=== PATIENT | female | born 1975 | race Caucasian/White ===

== ENCOUNTER → 2017-01-18 | Outpatient (CLI) | payer BC | LOC: BHSO 10:58 | DX: F41.1 Generalized anxiety disorder (principal) ==

== ENCOUNTER → 2017-07-06 | Outpatient (CLI) | payer BC | LOC: BHSO 13:05 | DX: F33.1 Major depressive disorder, recurrent, moderate (principal) ==

== ENCOUNTER → 2017-11-17 | Outpatient (CLI) | payer BC | LOC: BHSO 10:44 | DX: F33.1 Major depressive disorder, recurrent, moderate (principal) | CPT/HCPCS: G0463 ==

== ENCOUNTER → 2018-03-16 | Outpatient (CLI) | payer BC | LOC: BHSO 13:53 | DX: F33.41 Major depressive disorder, recurrent, in partial remission (principal) | CPT/HCPCS: G0463 ==

== ENCOUNTER → 2018-11-16 | Outpatient (CLI) | payer BC | LOC: BHSO 09:35 | DX: F33.41 Major depressive disorder, recurrent, in partial remission (principal) | CPT/HCPCS: G0463 ==

== ENCOUNTER → 2019-02-08 | Outpatient (CLI) | payer BC | LOC: BHSO 11:46 | DX: F31.81 Bipolar II disorder (principal) | CPT/HCPCS: G0463 ==

== ENCOUNTER → 2019-04-12 | Outpatient (CLI) | payer BC | LOC: BHSO 11:39 | DX: F31.81 Bipolar II disorder (principal) | CPT/HCPCS: G0463 ==

== ENCOUNTER → 2019-07-05 | Outpatient (CLI) | payer BC | LOC: BHSO 11:49 | DX: F31.81 Bipolar II disorder (principal) | CPT/HCPCS: G0463 ==

== ENCOUNTER → 2019-10-04 | Outpatient (CLI) | payer BC | LOC: BHSO 10:33 | DX: F31.81 Bipolar II disorder (principal) | CPT/HCPCS: G0463 ==

== ENCOUNTER → 2019-11-20 | Outpatient (CLI) | payer BC | LOC: BHSO 14:22 | DX: F31.81 Bipolar II disorder (principal) | CPT/HCPCS: G0463 ==

== ENCOUNTER → 2019-12-27 | Outpatient (CLI) | payer BC | LOC: BHSO 14:11 | DX: F31.81 Bipolar II disorder (principal) | CPT/HCPCS: G0463 ==

== ENCOUNTER → 2020-04-02 | Outpatient (CLI) | payer BC | LOC: BHSO 14:26 | DX: F31.81 Bipolar II disorder (principal) | CPT/HCPCS: G0463 ==